=== PATIENT | male | born 1955 | race Caucasian/White ===

== ENCOUNTER 2021-03-31 11:04 | Emergency (ER) | payer OTHER ==
--- NOTE | 2021-03-31 12:45 | RAD REPORT ---
EXAM DESCRIPTION: RAD - Shoulder Left 2 View - 03/31/2021 12:39 pm CLINICAL HISTORY: PAIN COMPARISON: No comparisons FINDINGS: There is a subcoracoid anterior dislocation of the humeral head noted. Small tiny fracture fragments are seen in the region of the glenoid. AC joint degenerative changes are also present. IMPRESSION: Anterior subcoracoid left shoulder dislocation.
--- NOTE | 2021-03-31 12:47 | RAD REPORT ---
EXAM DESCRIPTION: RAD - Shoulder Right 2 View - 03/31/2021 12:39 pm CLINICAL HISTORY: PAIN COMPARISON: No comparisons FINDINGS: Healing comminuted fracture of the proximal right humerus is seen with moderate surroundin g callus formation. Single screw is present in the glenoid. Several ossific loose bodies are noted li charan within the shoulder joint. No dislocation seen.
[2021-03-31] MEDS ORDERED: propofoL 200 MG/20 ML VIAL IV ONE (13:16)
[2021-03-31] MEDS ORDERED: FENTANYL CITR 100 MCG/2 ML ONE ×2 (13:16→14:39)
[2021-03-31] MEDS ORDERED: NA CHLORIDE 0.9% 1,000 ML ONE (13:16)
[2021-03-31] MEDS ORDERED: ONDANSETRON 4 MG/2 ML VIAL ONE (13:41)
--- NOTE | 2021-03-31 14:01 | RAD REPORT ---
EXAM DESCRIPTION: RAD - Shoulder 1 View - 03/31/2021 1:53 pm CLINICAL HISTORY: Right shoulder dislocation FINDINGS: Previously described humeral dislocation has been reduced.
--- NOTE | 2021-03-31 14:36 | EDPHYS ---
Physician Documentation [facility] Name: Rodney Graves Age: 65 yrs Sex: Male : 1955 Arrival Date: 03/31/2021 Time: 11:12 Bed 8 Private MD: ED Physician Elmer Almaraz HPI: 03/31 11:50 This 65 yrs old Male presents to ER via Ambulatory with complaints of cp Shoulder Injury. 11:50 The patient or guardian complains of an injury, pain, that is acute. right shoulder and cp left shoulder. Context: resulted from a fall, The patient experiences decreased range of motion, when attempts to raise arm, The patient notes a deformity, anterior fullness of left shoulder. 11:50 Associated signs and symptoms: The patient has no apparent associated signs or cp symptoms. Treatment prior to arrival includes: right upper extremity in sling. Patient referred to ED from [place] for reported injuries to bilateral shoulders. Patient reports multiple falls over past month causing injuries to both shoulders with right shoulder sustaining fracture and left shoulder being dislocated. Patient reports having xrays taken at [facility] today and being referred to this ED for evaluation. Patient reports most recent fall 2 weeks ago causing injury to left shoulder . Historical: - Allergies: 11:19 No Known Allergies; tw2 - Home Meds: 11:19 "unknown BP med" [Active]; tw2 - PMHx: 11:19 Hypertension; tw2 - PSHx: 11:19 Appendectomy; Hernia repair; Knee surgery; tw2 - Immunization history:: Adult Immunizations. - Social history:: Smoking status: Smoking status: Patient reports the use of cigarette tobacco products, 1/2 cigarette , Patient uses alcohol, occasionally. ROS: 12:00 Constitutional: Negative for body aches, chills, fever, poor PO intake. cp 12:00 Eyes: Negative for injury, pain, redness, and discharge. cp 12:00 Neck: Negative for pain with movement, pain at rest, stiffness. 12:00 Cardiovascular: Negative for chest pain, palpitations. 12:00 Respiratory: Negative for cough, shortness of breath, wheezing. 12:00 Abdomen/GI: Negative for abdominal pain, nausea, vomiting, and diarrhea. 12:00 Back: Negative for pain at rest, pain with movement. 12:00 MS/extremity: Positive for injury or acute deformity, decreased range of motion, deformity, pain, tenderness, of the left shoulder and right shoulder. 12:00 Neuro: Negative for altered mental status, gait disturbance, headache, loss of consciousness, syncope, weakness. 12:00 All other systems are negative. Exam: 12:05 Constitutional: The patient appears in no acute distress, alert, awake, cp non-diaphoretic, non-toxic, well developed, well nourished. 12:05 Head/Face: Normocephalic, atraumatic. cp 12:05 Eyes: Periorbital structures: appear normal, Conjunctiva: normal, no exudate, no injection, Sclera: no appreciated abnormality, Lids and lashes: appear normal, bilaterally. 12:05 ENT: External ear(s): are unremarkable, Nose: is normal, Mouth: Lips: moist, Oral mucosa: pink and intact, moist, Posterior pharynx: Airway: no evidence of obstruction, patent. 12:05 Neck: C-spine: vertebral tenderness, is not appreciated, crepitus, is not appreciated, ROM/movement: is normal, is supple, without pain, no range of motions limitations. 12:05 Chest/axilla: Inspection: normal, Palpation: is normal, no crepitus, no tenderness. 12:05 Cardiovascular: Rate: tachycardic, Rhythm: regular, Edema: is not appreciated, JVD: is not appreciated. 12:05 Respiratory: the patient does not display signs of respiratory distress, Respirations: normal, no use of accessory muscles, no retractions, labored breathing, is not present, Breath sounds: are clear throughout. 12:05 Abdomen/GI: Inspection: abdomen appears normal, Bowel sounds: active, all quadrants. 12:05 Back: pain, is absent, ROM is normal, vertebral tenderness, is not appreciated. 12:05 Musculoskeletal/extremity: ROM: limited passive range of motion, in the left shoulder and right shoulder, limited passive range of motion due to pain, in the left shoulder and right shoulder, Pulses: noted to be 2+ in the right radial artery and left radial artery, the right arm and left arm Sensation intact. Joints: All joints are normal except the left shoulder displays deformity, limited range of motion, painful range of motion, tenderness, anterior fullness, the right shoulder displays limited range of motion, pain at rest, painful range of motion, tenderness. 12:05 Neuro: Orientation: to person, place \\T\\ time. Mentation: is normal, Motor: moves all fours, strength is normal. Vital Signs: 11:16 BP 161 / 115; Pulse 100; Resp 17; Temp 97.9(TE); Pulse Ox 100% on R/A; Weight 74.84 kg; tw2 Height 5 ft. 8 in. (172.72 cm) (R); Pain 9/10; 11:16 Body Mass Index 25.09 (74.84 kg, 172.72 cm) tw2 Procedures: 13:32 Reduction: of the left shoulder, using traction, manipulation, Immobilized with sling, rn Patient tolerated well. Post reduction film - reveals improved alignment. Moderate sedation: Pre-procedure assessment: the patient has been NPO 5.5 hour(s) prior to arrival, ASA physical classification: I - healthy, no underlying organic disease, Airway assessment: able to hyperextend neck, able to maintain airway, can open mouth without difficulty, Monitoring during procedure: color television console monitor, continuous pulse oximetry, nurse at bedside at all times, Medications employed: propofol 100 mg total given IV, Post-procedure assessment: the patient is mildly sedated, Respiratory status: even and unlabored, a reversal agent was not used. MDM: 11:42 Patient medically screened. cp 13:00 Differential diagnosis: Anterior dislocation with fracture, Anterior dislocation cp without fracture, Posterior dislocation with fracture, Posterior dislocation without fracture, humeral head fracture. 14:36 Data reviewed: vital signs, nurses notes, radiologic studies, plain films. cp 14:36 Test interpretation: by ED physician or midlevel provider: plain radiologic studies. cp Counseling: I had a detailed discussion with the patient and/or guardian regarding: the historical points, exam findings, and any diagnostic results supporting the discharge/admit diagnosis, radiology results, the need for outpatient follow up, for definitive care, a orthopedic surgeon, to return to the emergency department if symptoms worsen or persist or if there are any questions or concerns that arise at home. Response to treatment: the patient's symptoms have markedly improved after treatment, VSS. Pain improved and left shoulder reduced successfully. Will discharge to home for continued monitoring. 03/31 11:45 Order name: XRAY Shoulder RIGHT 2 view cp 03/31 11:45 Order name: XRAY Shoulder LEFT 2 view cp 03/31 11:45 Order name: XRAY Shoulder (1 View): y-view cp 03/31 11:45 Order name: XRAY Shoulder (1 View): y-view cp 03/31 12:45 Order name: RAD; Complete Time: 14:36 EDMS 03/31 12:47 Order name: RAD; Complete Time: 14:36 EDMS 03/31 12:49 Order name: IV; Complete Time: 13:12 cp 03/31 13:35 Order name: XRAY Shoulder (1 View) ss 03/31 14:02 Order name: RAD; Complete Time: 14:36 EDMS Administered Medications: 13:15 Drug: fentaNYL (PF) 25 mcg Route: IVP; Site: right antecubital; hb 13:50 Follow up: Response: No adverse reaction hb 13:20 Drug: Propofol 20 mg Route: IVP; Site: right antecubital; hb 13:22 Drug: Propofol 20 mg Route: IVP; Site: right antecubital; hb 13:23 Drug: Propofol 20 mg Route: IVP; Site: right antecubital; hb 13:24 Drug: Propofol 20 mg Route: IVP; Site: right antecubital; hb 14:23 Follow up: Response: No adverse reaction hb 14:20 Drug: fentaNYL (PF) 25 mcg Route: IVP; Site: right antecubital; hb 14:44 Follow up: Response: No adverse reaction hb Disposition: 03/31/21 14:36 Discharged to Home. Impression: Other dislocation of left shoulder joint, Displaced comminuted fracture of shaft of humerus, right arm - proximal. - Condition is Stable. - Discharge Instructions: Shoulder Dislocation, Humerus Fracture Treated With Immobilization. - Prescriptions for Ibuprofen 800 mg Oral Tablet - take 1 tablet by ORAL route every 8 hours As needed take with food; 30 tablet. - Medication Reconciliation Form, Thank You Letter, Antibiotic Education, Prescription Opioid Use form. - Follow up: Jefferson Wolf MD; When: 2 - 3 days; Reason: Recheck today's complaints. - Problem is new. - Symptoms have improved. Signatures: Dispatcher [employer] EDMS Elmer Almaraz MD MD rn Page, Corey, PA PA cp Baxter, Heather, RN RN Cheryl Ricci RN RN tw2 Corrections: (The following items were deleted from the chart) 14:38 14:36 03/31/2021 14:36 Discharged to Home. Impression: Other dislocation of left cp shoulder joint. Condition is Stable. Forms are Medication Reconciliation Form, Thank You Letter, Antibiotic Education, Prescription Opioid Use. Follow up: Jefferson Wolf; When: 2 - 3 days; Reason: Recheck today's complaints. Problem is new. Symptoms have improved. cp 15:18 14:38 03/31/2021 14:36 Discharged to Home. Impression: Other dislocation of left hb shoulder joint; Displaced comminuted fracture of shaft of humerus, right arm - proximal. Condition is Stable. Forms are Medication Reconciliation Form, Thank You Letter, Antibiotic Education, Prescription Opioid Use. Follow up: Jefferson Wolf; When: 2 - 3 days; Reason: Recheck today's complaints. Problem is new. Symptoms have improved. cp 04/01 11:37 03/31 13:32 Moderate sedation: Pre-procedure assessment: the patient has been NPO 5.5 cp hour(s) prior to arrival, ASA physical classification: I - healthy, no underlying organic disease, Airway assessment: able to hyperextend neck, able to maintain airway, can open mouth without difficulty, Monitoring during procedure: color television console monitor, continuous pulse oximetry, nurse at bedside at all times, Medications employed: propofol, Post-procedure assessment: the patient is mildly sedated, Respiratory status: even and unlabored, a reversal agent was not used, rn
--- NOTE | 2021-03-31 14:36 | ER ---
Nurse's Notes [facility] Name: Rodney Graves Age: 65 yrs Sex: Male : 1955 Arrival Date: 03/31/2021 Time: 11:12 Bed 8 Private MD: Diagnosis: Other dislocation of left shoulder joint;Displaced comminuted fracture of shaft of humerus, right arm-proximal Presentation: 03/31 11:16 Chief complaint: Patient states: i dislocated my shoulder LEFT shoulder about a month tw2 ago and [facility]. and my LEFT shoulder is dislocated. Dr. Tam MCKEON sent me here. i am having more pain in my left shoulder. i had both xrays done about an hour ago. Coronavirus screen: At this time, the client does not indicate any symptoms associated with coronavirus-19. Ebola Screen: Patient denies travel to an Ebola-affected area in the 21 days before illness onset. Initial Sepsis Screen: Does the patient meet any 2 criteria? No. Patient's initial sepsis screen is negative. Does the patient have a suspected source of infection? No. Patient's initial sepsis screen is negative. Risk Assessment: Do you want to hurt yourself or someone else? Patient reports no desire to harm self or others. Onset of symptoms was March 31, 2021. 11:16 Method Of Arrival: Ambulatory tw2 11:16 Acuity: KOSTA 4 tw2 13:00 Acuity: KOSTA 2 hb Triage Assessment: 11:19 General: Appears in no apparent distress. slender, Behavior is calm, cooperative, tw2 appropriate for age. Pain: Complains of pain in left and right shoulder. Musculoskeletal: Range of motion: limited in left shoulder and right shoulder. Injury Description: "from fall, one slippery floor and my left shoulder i was carrying too much stuff and i just lost my balance". Historical: - Allergies: 11:19 No Known Allergies; tw2 - Home Meds: 11: "unknown BP med" [Active]; tw2 - PMHx: 11:19 Hypertension; tw2 - PSHx: 11:19 Appendectomy; Hernia repair; Knee surgery; tw2 - Immunization history:: Adult Immunizations. - Social history:: Smoking status: Smoking status: Patient reports the use of cigarette tobacco products, 1/2 cigarette , Patient uses alcohol, occasionally. Screenin:24 Abuse screen: Denies threats or abuse. Nutritional screening: No deficits noted. tw2 Tuberculosis screening: No symptoms or risk factors identified. Fall Risk None identified. Assessment: 11:45 General: Appears in no apparent distress. Behavior is calm, cooperative. Pain: Pain hb currently is 8 out of 10 on a pain scale. Neuro: Level of Consciousness is awake, alert, obeys commands, Oriented to person, place, time, situation. Cardiovascular: Patient's skin is warm and dry. Respiratory: Respiratory effort is even, unlabored, Respiratory pattern is regular, symmetrical. GI: No signs and/or symptoms were reported involving the gastrointestinal system. : No signs and/or symptoms were reported regarding the genitourinary system. EENT: No signs and/or symptoms were reported regarding the EENT system. Derm: Skin is pink, warm \\T\\ dry. Musculoskeletal: Reports left shoulder pain. 12:40 Reassessment: Patient appears in no apparent distress at this time. Patient and/or hb family updated on plan of care and expected duration. Pain level reassessed. Patient is alert, oriented x 3, equal unlabored respirations, skin warm/dry/pink. 13:18 Reassessment: Suhail MONTESINOS and Dr Almaraz at the bedside for the conscious sedation. sv Vital Signs: 11:16 BP 161 / 115; Pulse 100; Resp 17; Temp 97.9(TE); Pulse Ox 100% on R/A; Weight 74.84 kg; tw2 Height 5 ft. 8 in. (172.72 cm) (R); Pain 9/10; 11:16 Body Mass Index 25.09 (74.84 kg, 172.72 cm) tw2 ED Course: 11:12 Patient arrived in ED. mr 11:17 Triage completed. tw2 11:20 Arm band placed on. tw2 11:21 Bed in low position. Call light in reach. tw2 11:31 Gretchen Garces, IVANA is Primary Nurse. hb 11:37 Suhail Garcia PA is PHCP. cp 11:37 Elmer Almaraz MD is Attending Physician. cp 12:51 XRAY Shoulder (1 View): y-view Sent. sv 12:52 XRAY Shoulder (1 View): y-view Sent. sv 12:52 XRAY Shoulder RIGHT 2 view Sent. sv 12:52 XRAY Shoulder LEFT 2 view Sent. sv 13:00 Inserted saline lock: 20 gauge in right antecubital area, using aseptic technique. sv Flushed right antecubital with 5 ml normal saline. 13:11 Consent for conscious sedation explained by staff, explained by physician, signed by patient. 14:35 Jefferson Wolf MD is Referral Physician. cp Administered Medications: 13:15 Drug: fentaNYL (PF) 25 mcg Route: IVP; Site: right antecubital; hb 13:50 Follow up: Response: No adverse reaction hb 13:20 Drug: Propofol 20 mg Route: IVP; Site: right antecubital; hb 13:22 Drug: Propofol 20 mg Route: IVP; Site: right antecubital; hb 13:23 Drug: Propofol 20 mg Route: IVP; Site: right antecubital; hb 13:24 Drug: Propofol 20 mg Route: IVP; Site: right antecubital; hb 14:23 Follow up: Response: No adverse reaction hb 14:20 Drug: fentaNYL (PF) 25 mcg Route: IVP; Site: right antecubital; hb 14:44 Follow up: Response: No adverse reaction hb Outcome: 14:36 Discharge ordered by . cp 15:18 Patient left the ED. hb Signatures: Gabriela Beasley, RN IVANA CejaaLiz Corey, PA PA cp Gretchen Garces, RN Cheryl Torres RN RN tw2
[2021-03-31 15:48] VITALS: BP 161/115; TEMP 97.9; O2SAT 100
== END 2021-03-31 15:18 | disposition home or self-care (01) ==
LOC: ER 11:04
PROC: 0PSFXZZ Reposition Right Humeral Shaft, External Approach (ICD-10-PCS; principal; 2021-03-31)
DX: S42.201A Unspecified fracture of upper end of right humerus, initial encounter for closed fracture (principal); W01.0XXA Fall on same level from slipping, tripping and stumbling without subsequent striking against object, initial encounter; I10 Essential (primary) hypertension; Z72.0 Tobacco use
CPT/HCPCS: 73020; 73030 ×2; 24505; J2704; J3010 ×2; J7030; J2405; 96374; 96375; 99284